=== PATIENT | female | born 1995 | race Caucasian/White ===

== ENCOUNTER 2023-08-29 15:46 | Observation (INO) | payer OTHER, SELFPAY ==
[2023-08-29] VITALS (15 sets, daily range): BP systolic 90–126; BP diastolic 60–86; PULSE 83–137; RESP 16–38; TEMP 36.8–37.6; O2SAT 93–100; BMI 21.6; BMI 21.8
--- NOTE | 2023-08-29 | APP_PTH ---
PATHOLOGY RESULTS PATIENT: GALLO MORRIS LOC: MS3 U#:[id number] AGE/SX: 28/F ROOM: MS309 RE08/29/[address]: Dr. Obdulio Manrique MD : 1995 BED: 1 DIS: 08/30/2023 SPEC #: [id number] RECD: 08/30/23 08:17 STATUS: JING PATTEN #: [id number] JESSE: 08/29/23 00:[address]: Obdulio Manrique DEPT: SURGICAL PATHOLOGY RECD BY: August Mac ENTERED: 08/30/23 09:20 SP TYPE: APPENDIX OTHR DR: Dr. Boaz Carlisle MD Tissues: Appendix, NOS Procedures: Surgery Specimen Level III HEADER OPERATION: Laparoscopic appendectomy PRE-OP DIAGNOSIS: Acute appendicitis TISSUE SUBMITTED: Appendix MICROSCOPIC DIAGNOSIS Appendix, appendectomy: Acute purulent appendicitis and periappendicitis. CARLOS:saturnino 08/31/2023 MICROSCOPIC DESCRIPTION Slides are reviewed. GROSS DESCRIPTION Received in fixative is one container labeled with the patient's name and designated appendix. The specimen consists of a C-shaped appendix measuring 7.5 cm in length and up to 1.0 cm in diameter. The attached periappendiceal adipose tissue measures up to 1.0 cm in width. The serosal surface is covered with [place], purulent exudate and congested. No obvious perforation is identified. The lumen contains fecal material. No fecalith is identified. Grinder Set Up Operator Thread Tool sections are submitted in one cassette. / CARLOS:saturnino 08/30/2023 TC:2 CPT: 40644
--- NOTE | 2023-08-29 16:02 | CT_ITS ---
We are attempting to reach an attending provider to discuss findings. An addendum with communication details will be sent when the communication is complete. STUDY: CT ABDOMEN AND PELVIS WITH CONTRAST REASON FOR EXAM: Female, 28 years old. abd pain RADIATION DOSAGE (If Supplied By Facility): CTDIvol = ( 7.67 ) mGy, DLP = ( 248.23 ) mGycm TECHNIQUE: Transaxial images were obtained from the dome of the diaphragm to the symphysis pubis without oral contrast. 75 CC ISOVUE 300 was administered. Sagittal and coronal images were reconstructed. Individualized dose optimization techniques were used for this CT. COMPARISON: None. FINDINGS: The visualized lung bases are unremarkable. The visualized portions of the heart are within normal limits. Normal liver. Normal gallbladder and extrahepatic biliary system. Normal spleen. Normal pancreas. Normal bilateral adrenal glands. Normal right kidney. Normal left kidney. Normal visualized stomach. Diffuse ileus pattern is noted.. There is an appendicolith noted within the appendix which demonstrate diffuse thickening of the bobby and stranding of fat consistent with acute appendicitis Normal abdominal aorta. Normal inferior vena cava. Normal retroperitoneum. Incompletely distended bladder Normal abdominal wall. Normal osseous structures. CT/Abdomen/Pelvis W IV Cont ONLY IMPRESSION: Findings consistent with acute appendicitis without evidence for periappendiceal abscess. Electronically Signed: Riley Castellanos MD at 17:42 EST ,
--- NOTE | 2023-08-29 16:03 | EX.ED.DYSGE1 ---
HPI History of Present Illness Chief Complaint: Abd Pain Informant: patient and family Onset/Context/Timing Onset: Days (3 days) Context: Gradual Onset Narrative Narrative: Patient presents with 3-day history of mid abdominal pain. She reports nausea, vomiting, and diarrhea as well. She denies fever. On Monday of last week she was seen at [facility] for a sore throat. She was diagnosed with strep pharyngitis and started on amoxicillin. She states she stopped the amoxicillin yesterday not sure if that was what was making her nauseated. She denies any prior abdominal surgeries. She is currently on her menstrual cycle. 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) 90 mg PO DAILY 08/29/23 [History Last Taken Unknown] Allergy/AdvReac Type Severity Reaction Status Date / Time No Known Allergies Allergy Verified 08/29/23 15:49 Family History Father CVA (cerebral vascular accident) Surgical History H/O foot surgery Social History household members: spouse and family housing: house Smoking Status: Never smoker ROS ROS ED Constitutional Constitutional ED: Denies chills or fever(s) Eyes Eyes: Denies change in vision or discharge from eye(s) ENT ENT ED: Denies discharge from eye(s) or sore throat Cardiovascular Cardiovascular: Denies chest pain Respiratory/Chest Respiratory/Chest: Reports cough; Denies dyspnea Gastrointestinal Gastrointestinal: Reports abdominal pain, diarrhea, nausea and vomiting Genitourinary Genitourinary ED: Reports urinary frequency; Denies dysuria Musculoskeletal Musculoskeletal: Denies back pain or extremity pain Integumentary Denies Abrasions or rash Neurologic Neurologic: Denies headache(s) or weakness Psychiatric Psychiatric: Denies anxiety or depression Allergic/Immunologic Allergic/Immunologic ED: Denies lip swelling or urticaria EXAM Physical Exam Const Vital Signs: 08/29/23 15:47 Temperature 98.4 F Temperature Source Temporal Pulse Rate 137 H Respiratory Rate 16 Blood Pressure 126/86 H Blood Pressure Mean 99 Pulse Ox 98 Oxygen Delivery Method Room Air Positive well nourished and well developed General Appearance ED: well developed HEENT Reports dry mucous membranes Mouth ED: Yes dry mucous membranes Mouth: dry mucous membranes Eyes EOMs intact bilaterally Chest Wall inspection of chest normal and palpation of chest normal Resp normal respiratory effort and clear to auscultation bilaterally Cardio regular rhythm Rate: tachycardic GI GI Narrative: Abdomen soft with moderate mid abdominal tenderness. Voluntary guarding noted. Hypoactive bowel sounds. Extremity normal to inspection Neuro oriented x3 and no sensory deficits noted Motor Exam: strength 5/5 throughout Psych mental status grossly normal Skin no rashes or lesions noted MDM MDM MDM Narrative Medical decision making narrative: IV line initiated. Patient given small dose of morphine and Zofran along with IV fluids. Labwork obtained to evaluate for leukocytosis, anemia, and electrolyte derangement. Urinalysis obtained to evaluate for infection/hematuria. Swab for COVID, influenza, and RSV will be obtained. CT scan of the abdomen pelvis with IV contrast obtained to evaluate for potential appendicitis, cholecystitis, colitis. Discharge Plan Triage Chief Complaint: Abd Pain ED Provider: Angélica Byers Dx/Rx/DC Orders Prescriptions: No Action esomeprazole magnesium [Nexium] 20 mg capsule,delayed release(DR/EC) 20 mg PO DAILY thyroid (pork) [FIRE ALARM REPAIRER Thyroid] 90 mg tablet 90 mg PO DAILY Primary Care Provider: Boaz Carlisle Referrals: Boaz Carlisle MD [Primary Care Provider] -
[2023-08-29] MEDS: 0.9% Normal Saline (1000mL) 1,000 ML 1000 ML IV (16:12)
[2023-08-29] MEDS: Ondansetron 4 MG/2 ML Vial IV (16:12)
[2023-08-29] MEDS: Morphine 2 MG/ML Syringe IV (16:12)
[2023-08-29 16:24] LABS: Absolute Lymphocyte Count 0.94 X10^3/uL (0.83-4.51); Absolute Neutrophil Count 9.7 X10^3/uL (2.0-7.7); Basophil# 0.02 X10^3/uL; Basophil% 0.2 % (0-1); Hematocrit 40.1 % (37-47); Hemoglobin 13.7 g/dL (12.0-15.0); Lymphocyte # 0.94 X10^3/ul (0.83-4.51); Lymphocyte % 8.3 % (19-41); Mean Corp Hgb Conc 34.2 g/dL (32-36); Mean Corpuscular Hgb 31.1 pg (27.0-32.0); Mean Corpuscular Volume 90.9 fL (81-99); Mean Platelet Vol. 11.5 fl (6.2-12.0); Monocyte# 0.64 X10^3/uL; Monocyte% 5.6 % (0-10); NRBC Flagged by Analyzer 0 % (0-5); Neutrophil # 9.73 X10^3/uL (2.7-7.7); Neutrophil % 85.5 % (47-70); Platelet Count 106 K/mm3 (150-450); RBC Distribution Width CV 11.9 % (11.6-14.6); RBC Distribution Width SD 39.4 fl (35.1-43.9); Red Blood Count 4.41 M/mm3 (4.2-5.4); White Blood Count 11.4 K/mm3 (4.4-11.0)
[2023-08-29 16:45] LABS: AST(SGOT) 23 U/L (15-37); Alanine Aminotransfer ALT/SGPT 21 U/L (13-56); Albumin, Serum 3.9 g/dL (3.2-5.0); Alkaline Phosphatase 60 U/L (45-117); Anion Gap 6 (5-15); BUN 7 mg/dL (7-18); BUN/Creat Ratio 7.9 RATIO (10-20); Bilirubin, Direct 0.26 mg/dL (0.00-0.30); Calcium,Total 9.2 mg/dL (8.5-10.1); Chloride 106 mmol/L (98-107); Creatinine, Serum 0.89 mg/dL (0.55-1.02); EST Glomerular Filtration Rate 82 mL/min (>60); Est Glom Filt Rate - Afr Amer 99 mL/min (>60); Estimated Creatinine Clearance 75.76 ml/min; Globulin 3.9 g/dL (2.2-4.2); Glucose 107 mg/dL (74-106); Lipase 19 U/L (13-75); Potassium 3.5 mmol/L (3.5-5.1); Protein, Total 7.8 g/dL (6.4-8.2); Sodium Level 137 mmol/L (136-145)
[2023-08-29 17:00] LABS: Internal QC Validated? YES +Cl - CLEAR BKGD; Pregnancy, Serum, hCG Quali. NEGATIVE Negative
[2023-08-29 17:16] LABS: Bacteria 0 SEEN /hpf (None Seen); Mucous, Urine 0 SEEN /hpf (<or=2+); Red Blood Cells-Urine 0 SEEN /hpf (0-5); Squamous Epithelial Cells - UA 0 SEEN /hpf (5-10); White Blood Cells 0 SEEN /hpf (0-5)
[2023-08-29 17:28] LABS: Color, Urine Yellow (Yellow); Glucose, Dipstick Normal (Normal); Ketone-Dipstick 50 mg/dl (Negative); Leukocyte Esterase-Dipstick Negative /ul (Negative); Nitrite-Dipstick Negative (Negative); Occult Blood-Urine 10 /ul (Negative); Protein-Dipstick 30 mg/dl (Negative); Urine Bilirubin Dipstick Negative (Negative); Urine Clarity Clear (Clear); Urine Urobilinogen Normal (Normal)
[2023-08-29] MEDS: 0.9% Normal Saline (500mL Bag) 500 ML 999 ML IV (17:36)
--- NOTE | 2023-08-29 17:37 | NURSING ---
SURGERY THEN MED SURG DEBRA APPENDICITIS, FLU B
--- NOTE | 2023-08-29 17:49 | EX.PCM.CON.S ---
Assessment & Plan Assessment/Plan (1) Acute appendicitis: QUALIFIERS: Acute appendicitis type: unspecified acute appendicitis type Qualified Code(s): K35.80 - Unspecified acute appendicitis PLAN: The patient has been having pain and she was admitted to the hospital last week for strep throat. She was started on antibiotics. She says she was getting better and then started feeling worse again so she came into the hospital today after 3 days of feeling worse. She is positive for influenza B today. She had a CT scan which showed acute appendicitis. I discussed this with her in detail. I discussed the laparoscopic appendectomy with her in detail including the risks of bleeding, infection, injury other organs. Patient understands all the risks and is willing to proceed. Obdulio Manrique MD Pager: [facility] [address] [place] [address], [address] [place] [address] Office: HPI Consult Data Date of Consult: 08/29/23 HPI Narrative HPI Narrative: GALLO MORRIS is a 28 F who presents with abdominal pain since Monday. The patient reports for last 3 days she has been having right lower quadrant pain and nausea but no vomiting. She has says that she does feel febrile. She was recently admitted with strep throat to another hospital last week. She is also complaining of fatigue. 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) 90 mg PO DAILY 08/29/23 [History Last Taken 08/29/23] Allergy/AdvReac Type Severity Reaction Status Date / Time No Known Allergies Allergy Verified 08/29/23 15:49 Family History Father CVA (cerebral vascular accident) Surgical History H/O foot surgery Social History household members: spouse and family housing: house Smoking Status: Never smoker ROS Constitutional Constitutional: Reports anorexia, fatigue and fever(s) Eyes Eyes: Denies blurry vision ENT HEENT: Denies abnormal hearing Cardiovascular Cardiovascular: Denies chest pain Respiratory/Chest Respiratory/Chest: Denies cough or dyspnea Gastrointestinal Gastrointestinal: Reports abdominal pain and nausea; Denies constipation or vomiting Genitourinary Genitourinary: Denies change in urinary stream Musculoskeletal Musculoskeletal: Denies abnormal gait Integumentary Integumentary: Denies jaundice Neurologic Neurologic: Denies abnormal gait Physical Exam Const alert and oriented x3 HEENT normocephalic Eyes PERRL Cardio Rate: regular rate Rhythm: regular rhythm GI soft to palpation Palpation: tender RLQ Extremity normal to inspection Neuro CN's II-XII intact bilaterally Lab / Micro Data 08/29/23 16:16 08/29/23 16:16 Labs: Laboratory Results - last 24 hr 08/29/23 16:16: WBC 11.4 H, RBC 4.41, Hgb 13.7, Hct 40.1, MCV 90.9, MCH 31.1, MCHC 34.2, RDW Std Deviation 39.4, RDW Coeff of [place] 11.9, Plt Count 106 L, MPV 11.5, Immature Gran % (Auto) 0.400, Neut % (Auto) 85.5 H, Lymph % (Auto) 8.3 L, [place] % (Auto) 5.6, Eos % (Auto) 0.0, Baso % (Auto) 0.2, Absolute Neuts (auto) 9.7 H, Absolute Lymphs (auto) 0.94, Nucleated RBC % 0, Sodium 137, Potassium 3.5, Chloride 106, Carbon Dioxide 25.0, Anion Gap 6, BUN 7, Creatinine 0.89, Estim Creat Clear Calc 75.76, Est GFR (MDRD) Af Amer 99, Est GFR (MDRD) Non-Af 82, BUN/Creatinine Ratio 7.9 L, Glucose 107 H, Calcium 9.2, Total Bilirubin 0.90, Direct Bilirubin 0.26, AST 23, ALT 21, Alkaline Phosphatase 60, Total Protein 7.8, Albumin 3.9, Globulin 3.9, Lipase 19, Serum , Qual NEGATIVE 08/29/23 17:06: Urine Color Yellow, Urine Clarity Clear, Urine pH 6.0, Ur Specific [place] 1.010, Urine Protein 30 H, Urine Glucose (UA) Normal, Urine Ketones 50 H, Urine Occult Blood 10 H, Urine Nitrite Negative, Urine Bilirubin Negative, Urine Urobilinogen Normal, Ur Leukocyte Esterase Negative, Urine RBC 0 SEEN, Urine WBC 0 SEEN, Ur Squamous Epith Cells 0 SEEN, Urine Bacteria 0 SEEN, Urine Mucus 0 SEEN Micro: Microbiology 08/29/23 16:16 Mucosa - Nose SARS-CoV-2, Influenza & RSV (PCR) - Final Influenzae B Imaging Radiology Impression Abdomen/Pelvis CT 08/29/23 16:02 IMPRESSION: Findings consistent with acute appendicitis without evidence for periappendiceal abscess. Electronically Signed: Riley Castellanos MD at 17:42 EST ,
--- NOTE | 2023-08-29 17:52 | PCM.HP.BLA ---
History and Physical Date of Admission: 08/29/23 Assessment & Plan Assessment/Plan (1) Acute appendicitis: QUALIFIERS: Acute appendicitis type: unspecified acute appendicitis type Qualified Code(s): K35.80 - Unspecified acute appendicitis PLAN: The patient has been having pain and she was admitted to the hospital last week for strep throat. She was started on antibiotics. She says she was getting better and then started feeling worse again so she came into the hospital today after 3 days of feeling worse. She is positive for influenza B today. She had a CT scan which showed acute appendicitis. I discussed this with her in detail. I discussed the laparoscopic appendectomy with her in detail including the risks of bleeding, infection, injury other organs. Patient understands all the risks and is willing to proceed. Obdulio Manrique MD Pager: [facility] [address] [place] [address], [address] [place] [address] Office: HPI Consult Data Date of Consult: 08/29/23 HPI Narrative HPI Narrative: GALLO MORRIS is a 28 F who presents with abdominal pain since Monday. The patient reports for last 3 days she has been having right lower quadrant pain and nausea but no vomiting. She has says that she does feel febrile. She was recently admitted with strep throat to another hospital last week. She is also complaining of fatigue. 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) 90 mg PO DAILY 08/29/23 [History Last Taken 08/29/23] Allergy/AdvReac Type Severity Reaction Status Date / Time No Known Allergies Allergy Verified 08/29/23 15:49 Family History FatherCVA (cerebral vascular accident) Surgical History H/O foot surgery Social History household members: spouse and family housing: house Smoking Status: Never smoker ROS Constitutional Constitutional: Reports anorexia, fatigue and fever(s) Eyes Eyes: Denies blurry vision ENT HEENT: Denies abnormal hearing Cardiovascular Cardiovascular: Denies chest pain Respiratory/Chest Respiratory/Chest: Denies cough or dyspnea Gastrointestinal Gastrointestinal: Reports abdominal pain and nausea; Denies constipation or vomiting Genitourinary Genitourinary: Denies change in urinary stream Musculoskeletal Musculoskeletal: Denies abnormal gait Integumentary Integumentary: Denies jaundice Neurologic Neurologic: Denies abnormal gait Physical Exam Const alert and oriented x3 HEENT normocephalic Eyes PERRL Cardio Rate: regular rate Rhythm: regular rhythm GI soft to palpation Palpation: tender RLQ Extremity normal to inspection Neuro CN's II-XII intact bilaterally Lab / Micro Data 08/29/23 16:16 08/29/23 16:16 Labs: Laboratory Results - last 24 hr 08/29/23 16:16: WBC 11.4 H, RBC 4.41, Hgb 13.7, Hct 40.1, MCV 90.9, MCH 31.1, MCHC 34.2, RDW Std Deviation 39.4, RDW Coeff of Maribell 11.9, Plt Count 106 L, MPV 11.5, Immature Gran % (Auto) 0.400, Neut % (Auto) 85.5 H, Lymph % (Auto) 8.3 L, [place] % (Auto) 5.6, Eos % (Auto) 0.0, Baso % (Auto) 0.2, Absolute Neuts (auto) 9.7 H, Absolute Lymphs (auto) 0.94, Nucleated RBC % 0, Sodium 137, Potassium 3.5, Chloride 106, Carbon Dioxide 25.0, Anion Gap 6, BUN 7, Creatinine 0.89, Estim Creat Clear Calc 75.76, Est GFR (MDRD) Af Amer 99, Est GFR (MDRD) Non-Af 82, BUN/Creatinine Ratio 7.9 L, Glucose 107 H, Calcium 9.2, Total Bilirubin 0.90, Direct Bilirubin 0.26, AST 23, ALT 21, Alkaline Phosphatase 60, Total Protein 7.8, Albumin 3.9, Globulin 3.9, Lipase 19, Serum , Qual NEGATIVE 08/29/23 17:06: Urine Color Yellow, Urine Clarity Clear, Urine pH 6.0, Ur Specific [place] 1.010, Urine Protein 30 H, Urine Glucose (UA) Normal, Urine Ketones 50 H, Urine Occult Blood 10 H, Urine Nitrite Negative, Urine Bilirubin Negative, Urine Urobilinogen Normal, Ur Leukocyte Esterase Negative, Urine RBC 0 SEEN, Urine WBC 0 SEEN, Ur Squamous Epith Cells 0 SEEN, Urine Bacteria 0 SEEN, Urine Mucus 0 SEEN Micro: Microbiology 08/29/23 16:16 Mucosa - Nose SARS-CoV-2, Influenza & RSV (PCR) - Final Influenzae B Imaging Radiology Impression Abdomen/Pelvis CT 08/29/23 16:02 IMPRESSION: Findings consistent with acute appendicitis without evidence for periappendiceal abscess. Electronically Signed: Riley Castellanos MD at 17:42 EST Reading Location ID and State: [facility] / [place] Tel , Service support ,
[2023-08-29] MEDS: Piperacil/Tazobactam 3.375 GM in 0.9% Normal Saline (50mL MB+) 50 ML IV ×2 (18:05→21:48)
[2023-08-29] MEDS: Lactated Ringers 1,000 ML 15 ML IV (18:34)
[2023-08-29] MEDS: Bupivacaine Mpf 0.5% 30 ML VIAL (19:05)
--- NOTE | 2023-08-29 19:34 | OP.PCM_ITS ---
Report of Operation Date of Procedure: 08/29/23 Pre-Operative Diagnosis: Acute appendicitis Post-Operative Diagnosis: Same Surgery/Procedure Performed:: Laparoscopic appendectomy Description of Surgical Findings:: Inflamed appendix with some gangrene Type of Anesthesia: General/Regional Specimen's removed: Appendix Estimated Blood Loss (mL): 5 Description of Procedure: The patient was brought into the operating room and general anesthesia was induced. The left arm was tucked and the abdomen was prepped and draped in usual sterile fashion. A small midline incision was made superior to the umbilicus and deepened to the level of the fascia. The fascia was elevated and incised. The peritoneum was also elevated and incised. A finger sweep was performed and a balloon trocar was placed into the abdomen and inflated. The abdomen was insufflated to 15 mmHg and the camera was inserted and the abdomen was inspected for any injuries upon entering the abdomen. There were none. The patient was placed in Trendelenburg position and a 5 mm ports placed in the left lower quadrant and suprapubic areas under direct visualization. Next using atraumatic bowel graspers the appendix was identified. The appendix was grasped and elevated and Enseal was used to take down the mesoappendix. A stapler was used to come across the base of the appendix. The appendix was then placed in Endo Catch bag and removed through the umbilical incision. The staple line was inspected and found to be hemostatic and intact. The 2 5 mm ports are removed under direct visualization. The balloon trocar was deflated and removed and all the air was removed from the abdomen. The umbilical incision fascia was closed with an 0 Vicryl [id number] suture. The incisions were then irrigated with saline and dried. Local anesthetic was injected into the incision sites. The skin incisions were then closed with interrupted 4-0 Monocryl suture and Steri- Strips. Bandages were applied and the patient was awoken and taken to PACU in stable condition. Patient tolerated the procedure well.
[2023-08-29] MEDS: 0.9% Normal Saline (1000mL) 1,000 ML 100 ML IV (21:02)
[2023-08-29] MEDS: 0.9% Normal Saline (250mL Bag) 250 ML 15 ML IV (21:03)
[2023-08-29] MEDS: Ketorolac 15 MG/ML Vial IV (21:48)
[2023-08-29] MEDS: guaiFENesin 10 ML UDC (200MG/10ML) GT (21:48)
[2023-08-29] MEDS: Acetaminophen 325 MG Tablet 650 MG PO (21:49)
--- OUTSIDE RECORDS SUMMARY | 2023-08-30 00:26 | XMS RPT_ITS | CCD ---
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; Translations: [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 Unknown 188 Summary Purpose Family History No Family History Records FoundNo Family History Records FoundNo Family History Records FoundNo Family History Records Found Advance Directives No Advanced Directives Records FoundNo Advanced Directives Records FoundNo Advanced Directives Records FoundNo Advanced Directives Records Found Additional Source Comments INFORMATION SOURCE (unrecogn ized section and content) DATE CREATED AUTHOR AUTHOR'S ORGANIZ ATION 10/28/2020 [facility] DATE CREATED AUTHOR AUTHOR'S ORGANIZ ATION 06/24/2021 [facility] DATE CREATED AUTHOR AUTHOR'S ORGANIZ ATION 02/27/2023 [facility] FOR RECORDS PERTAINING TO PATIENTS WHO ARE OR HAVE BEEN ENROLLED IN A CHEMICAL DEPENDENCY/SUBSTANCEABUSE PROGRAM, SOME INFORMATION MAY BE OMITTED. This clinical summary was aggregated from multiple sources. Caution should be exercised in using it in the provision of clinical care. This summary normalizes information from multiple sources, and as a consequence, information in this document may materially change the coding, format and clinical context of patient data. In addition, data may be omitted in some cases. CLINICAL DECISIONS SHOULD BE BASED ON THE PRIMARY CLINICAL RECORDS. [employer] [facility]. provides no warranty or guarantee of the accuracy or completeness of information in this document.
--- OUTSIDE RECORDS SUMMARY | 2023-08-30 00:31 | XMS RPT_ITS | CCD ---
Author Name Unknown Address [address] [place] [address] [address] [facility] [address] [place] [address] Organization [facility] Care Team Providers Care Electronic Funds Transfer Coordinator Name Role Phone FLORENCIO MORRIS CNM Attending Unavailable FLORENCIO MORRIS CNM Primary Care Unavailable FLORENCIO MORRIS CNM Admitting Unavailable WALT BRADLEY NP Attending Unavailable WALT BRADLEY NP Primary Care Unavailable WALT BRADLEY CRACKING STILL OPERATOR Admitting Unavailable Problems Problem Classification Problem Date [...] Start: 09-21-2022 End: 02-27-2023 ambulatory WALT Oseguera [facility] Start: 10-22-2020 End: 10-22-2020 ambulatory FLORENCIO JAUREGUI [facility] Payers Date Payer Category Payer Unknown [id number] Unknown [id number] Summary Purpose Family History No Family History Records FoundNo Family History Records FoundNo Family History Records FoundNo Family History Records Found Advance Directives No Advanced Directives Records FoundNo Advanced Directives Records FoundNo Advanced Directives Records FoundNo Advanced Directives Records Found Additional Source Comments INFORMATION SOURCE (unrecogn ized section and content) DATE CREATED AUTHOR AUTHOR'S ORGANIZ ATION 10/28/2020 [facility] DATE CREATED AUTHOR AUTHOR'S ORGANIZ ATION 06/24/2021 [facility] DATE CREATED AUTHOR AUTHOR'S ORGANIZ ATION 02/27/2023 [facility] FOR RECORDS PERTAINING TO PATIENTS WHO [...] BE BASED ON THE PRIMARY CLINICAL RECORDS. [employer] [facility]. provides no warranty or guarantee of the accuracy or completeness of information in this document.
[2023-08-30 00:47] VITALS: BP 97/56; PULSE 84; RESP 16; TEMP 36.6; O2SAT 97
[2023-08-30 04:50] VITALS: BP 101/67; PULSE 67; RESP 16; TEMP 36.8; O2SAT 96
[2023-08-30] MEDS: guaiFENesin 10 ML UDC (200MG/10ML) GT ×3 (04:52→15:56)
[2023-08-30] MEDS: Acetaminophen 325 MG Tablet 650 MG PO ×3 (04:53→15:56)
[2023-08-30] MEDS: 0.9% Normal Saline (1000mL) 1,000 ML 100 ML IV (04:54)
[2023-08-30] MEDS: THYROID 90 MG PO (05:42)
[2023-08-30] MEDS: Piperacil/Tazobactam 3.375 GM in 0.9% Normal Saline (50mL MB+) 50 ML IV ×2 (05:48→14:00)
--- NOTE | 2023-08-30 08:01 | PN.SURG_ITS ---
Subjective Subjective Patient is feeling better this morning. She does not have any fever but she still does have a cough. She denies any nausea or abdominal pain besides incisional Objective Data Objective Data Vital Signs: Vital Signs Temp Pulse Resp BP Pulse Ox O2 Del Method O2 Flow Rate 98.2 F 67 16 101/67 96 Room Air 6 08/30/23 04:50 08/30/23 04:50 08/30/23 04:50 08/30/23 04:50 08/30/23 04:50 08/30/23 04:50 08/29/23 19:31 Oxygen Flow Rate (L/min) 6 Oxygen Delivery Method Room Air Weight: 123 lb 3.814 oz Body Mass Index (BMI) 21.8 Intake & Output: Intake and Output for Last 24 Hours 08/28/23 08/29/23 08/30/23 23:59 23:59 23:59 Intake Total 1595.00 / 1595.00 1259.42 / 1259.42 Balance 1595.00 / 1595.00 1259.42 / 1259.42 Lab / Micro Data 08/29/23 16:16 08/29/23 16:16 Labs: Laboratory Results - last 24 hr 08/29/23 16:16: WBC 11.4 H, RBC 4.41, Hgb 13.7, Hct 40.1, MCV 90.9, MCH 31.1, MCHC 34.2, RDW Std Deviation 39.4, RDW Coeff of [place] 11.9, Plt Count 106 L, MPV 11.5, Immature Gran % (Auto) 0.400, Neut % (Auto) 85.5 H, Lymph % (Auto) 8.3 L, [place] % (Auto) 5.6, Eos % (Auto) 0.0, Baso % (Auto) 0.2, Absolute Neuts (auto) 9.7 H, Absolute Lymphs (auto) 0.94, Nucleated RBC % 0, Sodium 137, Potassium 3.5, Chloride 106, Carbon Dioxide 25.0, Anion Gap 6, BUN 7, Creatinine 0.89, Estim Creat Clear Calc 75.76, Est GFR (MDRD) Af Amer 99, Est GFR (MDRD) Non-Af 82, BUN/Creatinine Ratio 7.9 L, Glucose 107 H, Calcium 9.2, Total Bilirubin 0.90, Direct Bilirubin 0.26, AST 23, ALT 21, Alkaline Phosphatase 60, Total Protein 7.8, Albumin 3.9, Globulin 3.9, Lipase 19, Serum , Qual NEGATIVE 08/29/23 17:06: Urine Color Yellow, Urine Clarity Clear, Urine pH 6.0, Ur Specific [place] 1.010, Urine Protein 30 H, Urine Glucose (UA) Normal, Urine Ketones 50 H, Urine Occult Blood 10 H, Urine Nitrite Negative, Urine Bilirubin Negative, Urine Urobilinogen Normal, Ur Leukocyte Esterase Negative, Urine RBC 0 SEEN, Urine WBC 0 SEEN, Ur Squamous Epith Cells 0 SEEN, Urine Bacteria 0 SEEN, Urine Mucus 0 SEEN Micro: Microbiology 08/29/23 16:16 Mucosa - Nose SARS-CoV-2, Influenza & RSV (PCR) - Final Influenzae B Radiography Diagnostic Testing: Radiology Impression Abdomen/Pelvis CT 08/29/23 16:02 IMPRESSION: Findings consistent with acute appendicitis without evidence for periappendiceal abscess. Electronically Signed: Riley Castellanos MD at 17:42 EST , ADDENDUM: 08/29/23 1808 IMPRESSION: Findings consistent with acute appendicitis without evidence for periappendiceal abscess. N.B. : The above Results were Read Back by Riley Castellanos MD to Angélica Byers MD, and understanding confirmed on 08/29/2023 18:01:47 (ET). Electronically Signed: Riley Castellanos MD at 17:42 EST , Physical Exam Const oriented x3 and no apparent distress Resp normal respiratory effort GI soft to palpation and non-tender Assessment & Plan Assessment/Plan (1) Acute appendicitis: QUALIFIERS: Acute appendicitis type: unspecified acute appendicitis type Qualified Code(s): K35.80 - Unspecified acute appendicitis PLAN: Patient is doing well after laparoscopic appendectomy. As long as she tolerates diet today I will let her go home after lunch. Obdulio Manrique MD Pager: [facility] [address] [place] [address], [address] [place] [address] Office:
[2023-08-30 08:37] VITALS: BP 97/63; PULSE 73; RESP 16; TEMP 36.4; O2SAT 98
--- NOTE | 2023-08-30 08:57 | DCINST_ITS ---
Discharge Instructions Diet Discharge Diet: Light diet - advance as tolerated Activity Discharge Activity: May Not Drive (for 2-3 days or while taking narcotic pain medications) and May Shower Lifting Restrictions: 15 lbs for 2 weeks Dressing / Incision Call your doctor if your incision/area has: Continuous Slow Oozing, Sudden Increased Bleeding, Increased Pain/ Swelling, Increased Redness and Foul Sm elling Discharge Call your doctor if you observe: Fever of 101 or Higher Suture Line Care: Avoid Pulling/Pushing and Avoid Pinching/Bending Remove Dressing in: 2 days (Remove clear bandages in 2 days, remove steri strips in 7-10 days) Cleanse incision/area with: Soap & Water Follow Up Care Please Follow Up With: Obdulio Manrique MD When: Please call to schedule 2 week follow up appointment at [phone] Test Results: Test results from this visit will be discussed in further detail at your follow- up appointment, if applicable. Discharge Plan Admission Admit Date/Time: 08/29/23 19:30 Attending Provider: Obdulio Manrique Primary Care Provider: Boaz Carlisle Instructions Additional Instructions / Restrictions: Alternate Ibuprofen and Tylenol for pain Discharge Orders/Prescriptions Prescriptions: New acetaminophen 325 mg Tablet 650 mg PO Q4H PRN PRN (Reason: Pain 1-10 Or Fever) Qty: 0 0RF Continued esomeprazole magnesium [Nexium] 20 mg capsule,delayed release(DR/EC) 20 mg PO DAILY Patient Comments: family states that pt just tried nexium a couple times to make this abd pain go away, pt will not be continuing. thyroid (pork) [[employer] Thyroid] 90 mg tablet 90 mg PO DAILY Referrals / Follow Up: Boaz Carlisle MD [Primary Care Provider] - Disposition Disposition (needs filled in before D/C Order can be placed): Home, Self Care
[2023-08-30] MEDS: Pantoprazole Sodium 20 MG Tablet PO (09:57)
[2023-08-30 11:15] VITALS: BP 105/70; PULSE 80; RESP 16; TEMP 36.5; O2SAT 98
[2023-08-30 16:15] VITALS: BP 100/62; PULSE 69; RESP 16; TEMP 36.4; O2SAT 97
== END 2023-08-30 17:41 | disposition home or self-care (01) ==
LOC: ED 16:50 → SDC 17:46 → MS3 17:46 → SDC 19:34 → MS3 19:34
PROVIDERS: Admitting Provider Surgery; Emergency Provider Emergency Medicine; PCP Family Medicine; Visit Provider Surgery
PROC: 0DTJ4ZZ Resection of Appendix, Percutaneous Endoscopic Approach (ICD-10-PCS; CPT 44970; principal; 2023-08-29 17:20)
DX: K35.891 Other acute appendicitis without perforation, with gangrene (principal); E03.9 Hypothyroidism, unspecified; Z79.890 Hormone replacement therapy; J10.1 Influenza due to other identified influenza virus with other respiratory manifestations
CPT/HCPCS: 44970; 74177; 80048; 80076; 81001; 83690; 84703; 85025; 87631; 88304; 96361; 96365; 96366; 96375; 99221; 99285; J7030; J7050; J7120; Q9967; A4216; C1760; G0378; J2405